=== PATIENT | male | born 1950 | race Caucasian/White ===

== ENCOUNTER 2019-03-06 18:22 | Emergency (ER) | payer MEDICARE ==
[~2019-03-06] VITALS: Ht 180.3 cm; Wt 122.7 kg
[~2019-03-06 18:22] MED LIST: ADVIL200 MG; ALEVE 220MG220 MG; FLOMAX 0.40.4 MG/CAP PO; LEXAPRO20 MG PO; LOVENOX 4040 MG/0.4 SQ; MOBIC15 MG PO; NEXIUM 40MG40 MG PO; NEXIUM40 MG PO; OXYCONTIN 10MG10 MG PO; PERCOCET 325 MG1 TA3 PO
[2019-03-06 18:30] VITALS: TEMP 97.6
[2019-03-06 19:23] LABS: BASO % 0.4 % (0.0-2.0); GRAN # 7.1 (1.4-6.5); GRAN % 77.6 % (42.2-75.2); HEMATOCRIT 49.7 % (42.0-52.0); LYMPH # 1.2 (1.2-3.4); LYMPH % 13.6 % (20.0-51.0); MEAN CELL VOLUME 91 fl (80.0-100.0); MEAN CORPUSCULAR HEMOGLOBIN 33 pg (27.0-31.0); MEAN CORPUSCULAR HGB CONC 36 g/dl (33.0-37.0); MONO # 0.7 (0.1-0.6); PLATELET COUNT 269 K/mm3 (130-400); RED BLOOD COUNT 5.48 M/mm3 (4.20-5.60)
[2019-03-06 19:33] LABS: ALANINE AMINOTRANSFERASE 36 U/L (21-72); ALBUMIN 4.9 gm/dL (3.5-5.0); ALKALINE PHOSPHATASE 80 U/L (50-136); ANION GAP 16 mmol/L (7-16); AST,SGOT 52 U/L (15-37); BILIRUBIN,TOTAL 2.3 mg/dL (0.0-1.0); BLOOD UREA NITROGEN 9 mg/dL (9-20); CALCIUM 9.8 mg/dL (8.4-10.2); CARBON DIOXIDE 24 mmol/L (22-30); CHLORIDE 94 mmol/L (98-107); CREATININE, serum 0.75 (0.66-1.25); GLUCOSE 118 mg/dL (74-106); LIPASE 70 U/L (23-300); MAGNESIUM 1.3 mg/dL (1.6-2.3); POTASSIUM 3.6 mmol/L (3.4-5.0); SODIUM 134 mmol/L (137-145)
[2019-03-06 19:35] LABS: ALCOHOL(ethanol),MEDICAL < 10 mg/dL; C-REACTIVE PROTEIN < 0.5 mg/dL (0.0-0.9)
[2019-03-06 19:46] LABS: TROPONIN-I < 0.012 ng/mL (0.000-0.035)
[2019-03-06 20:40] LABS: COLLECTION METHOD CLEAN CATCH
[2019-03-06 21:00] LABS: PH 7 (5-8); SQUAMOUS EPITHELIAL None Seen /hpf; URINE APPEARANCE Clear; URINE BACTERIA None Seen /hpf; URINE BILIRUBIN Negative (NEGATIVE); URINE BLOOD Negative (NEGATIVE); URINE COLOR Yellow; URINE GLUCOSE Negative (NEGATIVE); URINE KETONE Trace (NEGATIVE); URINE LEUKOCYTE ESTERASE Negative (NEGATIVE); URINE NITRATE Negative (NEGATIVE); URINE PROTEIN(semi-quant) Negative (NEGATIVE); URINE RBC 0-2 /hpf; URINE UROBILINOGEN Negative (NEGATIVE)
[2019-03-06 21:45] VITALS: BP 126/94; PULSE 96
[2019-03-06] MEDS ORDERED: PRILOSEC 20MG20 MG PO (22:00)
[2019-03-06] MEDS ORDERED: LIPITOR 10MG10 MG PO (22:00)
== END 2019-03-06 21:53 | disposition home or self-care (01) ==
LOC: COL.ER 18:22
PROVIDERS: Emergency Medicine
DX: K80.80 Other cholelithiasis without obstruction (principal); F32.9 Major depressive disorder, single episode, unspecified; E78.5 Hyperlipidemia, unspecified; I10 Essential (primary) hypertension
CPT/HCPCS: J2405; J3010; J3475; J7030; Q9967

== ENCOUNTER → 2019-10-14 | Outpatient (CLI) | payer MEDICARE ==
[~2019-10-14] MED LIST changes: +LIPITOR 10MG10 MG PO; +PRILOSEC 20MG20 MG PO
[2019-10-14 10:55] LABS: CREATININE, serum 0.71 (0.66-1.25); POTASSIUM 3.8 mmol/L (3.4-5.0)
== END ==
LOC: COL.RAD 10:00
PROVIDERS: Internal Medicine Cardiovascular Disease
DX: I74.5 Embolism and thrombosis of iliac artery (principal); I72.3 Aneurysm of iliac artery; I71.4 Abdominal aortic aneurysm, without rupture; N28.1 Cyst of kidney, acquired; K76.89 Other specified diseases of liver; Z95.828 Presence of other vascular implants and grafts
CPT/HCPCS: Q9967

== ENCOUNTER → 2021-06-26 | Outpatient (CLI) | payer MEDICARE ==
[2021-06-26 11:42] LABS: CALCIUM 9.7 mg/dL (8.4-10.2); CREATININE, serum 0.94 mg/dL (0.72-1.25)
== END ==
LOC: COL.RAD 11:06
DX: I10 Essential (primary) hypertension (principal); I71.4 Abdominal aortic aneurysm, without rupture; Z98.890 Other specified postprocedural states; Z86.79 Personal history of other diseases of the circulatory system
CPT/HCPCS: Q9967

== ENCOUNTER → 2022-06-20 | Outpatient (CLI) | payer MEDICARE | LOC: COL.RAD 12:16 | DX: K80.20 Calculus of gallbladder without cholecystitis without obstruction (principal); K76.89 Other specified diseases of liver; N28.1 Cyst of kidney, acquired; I72.3 Aneurysm of iliac artery | CPT/HCPCS: Q9967 ==